=== PATIENT | female | born 1990 | race Caucasian/White ===

== ENCOUNTER 2017-01-07 15:00 | Emergency (ER) | payer MEDICAID ==
[~2017-01-07] VITALS: Ht 162.6 cm; Wt 95.5 kg
[2017-01-07 16:36] VITALS: BP 136/90
--- NOTE | 2017-01-07 17:06 | NUR ---
PATIENT AMBULATED TO ER BED 8.
--- NOTE | 2017-01-07 17:06 | NUR ---
PATIENT PRESENTS TO ED WITH C/O LOWER ABDOMINAL PAIN X 2 PAIN---CRAMP SHARP TYPE PAIN HEADACHES, LIGHTHEADED---DENIES N/V/D ---VAGINAL DC YELLOW/WHITE X 1 WK AGO AND RESOLVED WITH OVER THE COUNTER TREATMENT- TREATED FOR UTI X 1 1/2 WKS AGO----ADMITS TO UNPROTECTED SEX BEFORE SYMPTOMS ---VAGINAL BLEEDING X 2 DAYS ---3 [facility] [place]/ DAY HX----FATTY LIVER, ASTHMA RX----ALBUTEROL; DENIES N/V/D; SKIN IS PINK/WARM/DRY; AAOX4 WITH EVEN AND STEADY GAIT; LUNGS CLEAR BL; HR EVEN AND REGULAR; PT DENIES ANY FEVER, CP, SOB, OR COUGH AT THIS TIME; PATIENT STATES PAIN OF 10/10 AT THIS TIME; VSS; PATIENT POSITIONED FOR COMFORT; HOB ELEVATED; BEDRAILS UP X2; BED DOWN. ER MD MADE AWARE OF PT STATUS.
--- NOTE | 2017-01-07 17:17 | NUR ---
DR GARCIA EVALUATING AAO PT AT BEDSIDE
[2017-01-07 18:49] LABS: APPEARANCE,URINE CLEAR (CLEAR); BILIRUBIN,URINE NEGATIVE (NEGATIVE); BLOOD, URINE 3+ (NEGATIVE); COLOR,URINE YELLOW (YELLOW); LEUKOCYTE ESTERASE ,URINE NEGATIVE (NEGATIVE); NITRITE, URINE NEGATIVE (NEGATIVE); PH,URINE 6.5 (5.0-9.0); UGLUCOSE NEGATIVE (NEGATIVE)
[2017-01-07 18:53] LABS: RBC,URINE 20-50 /HPF (0-5); WBC,URINE 0-5 (RARE) /HPF (0-5)
[2017-01-07 18:56] VITALS: BP 126/88
[2017-01-11 08:41] LABS: CHLAMYDIA TRACHOMATIS AMP DNA NEGATIVE (NEGATIVE)
== END 2017-01-07 18:56 | disposition home or self-care (01) ==
LOC: MED 15:00
DX: N93.9 Abnormal uterine and vaginal bleeding, unspecified (principal)
CPT/HCPCS: 36415; 81001; 81025; 87086; 87491; 99284